=== PATIENT | male | born 1995 | race Hispanic/Latino ===

== ENCOUNTER 2017-06-04 10:16 | Emergency (ER) | payer SELFPAY ==
[2017-06-04] MEDS ORDERED: traMADol HCl 50 MG TAB ONE (10:37)
[2017-06-04] MEDS ORDERED: Adacel (T-DAP) 0.5 ML VIAL ONE (10:39)
--- NOTE | 2017-06-04 11:11 | RAD ---
LEFT HAND FIFTH DIGIT 3 VIEWS: Date: 06/04/17 HISTORY: Smashed left fifth digit with a wrench. FINDINGS: Nondisplaced tuft fracture. IMPRESSION: Nondisplaced tuft fracture. POS: [id number]
[2017-06-04] MEDS ORDERED: Bacitracin Zinc 1 Packet ONE (11:22)
== END 2017-06-04 11:42 | disposition home or self-care (01) ==
LOC: NAV ERS 10:16
DX: S62.667A Nondisplaced fracture of distal phalanx of left little finger, initial encounter for closed fracture (principal); W23.0XXA Caught, crushed, jammed, or pinched between moving objects, initial encounter; Y92.69 Other specified industrial and construction area as the place of occurrence of the external cause
CPT/HCPCS: 90471; 90715; Q4049